=== PATIENT | female | born 1955 | race Caucasian/White ===

== ENCOUNTER 2020-07-19 09:40 | Inpatient (IN) | payer MEDICARE, OTHER ==
[2020-07-15 12:21] LABS: Basophils # (auto) 0.1 10 ^3/uL (0-0.2); Basophils % (auto) 1.4 % (0.0-2.0); Eosinophils # (auto) 0.3 10 ^3/uL (0-0.8); Eosinophils % (auto) 3.5 % (0.0-7.0); Hematocrit 41.6 % (36.0-46.0); Hemoglobin 14.1 g/dL (12.2-16.2); Lymphocytes # (auto) 3.3 10 ^3/uL (0.4-5.4); Lymphocytes % (auto) 43.6 % (10.0-50.0); Mean Corpuscular Hemoglobin 30.5 pg (28.0-32.0); Mean Corpuscular Hgb Conc. 33.8 g/dL (32.0-36.0); Mean Corpuscular Volume 90.1 fL (80.0-100.0); Monocytes # (auto) 0.5 10 ^3/uL (0-1.3); Monocytes % (auto) 6.9 % (0.0-12.0); Neutrophils # (auto) 3.4 10 ^3/uL (1.6-8.6); Neutrophils % (auto) 44.6 % (37.0-80.0); Nucleated Red Blood Cells % 0.1 %; Platelet Count (auto) 285 10^3/uL (140-450); Red Blood Cells 4.62 10^6/uL (4.0-5.20); Red Cell Distribution Width 13.6 % (11.8-14.3); White Blood Cell 7.7 10^3/uL (4.4-10.8)
[2020-07-15 12:27] LABS: Urine Bacteria NONE SEEN /hpf (None Seen); Urine Blood Negative /uL (Negative); Urine Mucus FEW (None Seen); Urine Specific Gravity 1.016 (1.001-1.035); Urine WBC <1 /hpf (0 - 5)
[2020-07-15 12:54] LABS: Albumin 3.7 g/dL (3.4-5.0); BUN/Creatinine Ratio 20.3; Calcium 8.4 mg/dL (8.5-10.1); INR 0.95 (0.9-1.15); Partial Thromboplastin Time 25.5 sec (23.0-31.2); Potassium 4.5 mmol/L (3.5-5.1)
[2020-07-15 12:55] LABS: Bilirubin, Total 0.3 mg/dL (0.2-1.0); Total Protein 7.6 g/dL (6.4-8.2)
[~2020-07-19] VITALS: Ht 154.9 cm; Wt 71.7 kg
[~2020-07-19 09:40] MED LIST: ASCO500T11 PO; ASPI-543 PO; CARV6.2551 PO; CHOL500040 PO; CYAN-17 PO; MULT50TA PO; OMEP20TA PO; SERT-377 PO; SIMV-13 PO; ZINC50TA7 PO; [UNRECOGNIZED DRUG - CODE] PO
[2020-07-19] MEDS ORDERED: ceFAZolin 1GM/50ML 100 ML IV ONE (09:50)
[2020-07-19] MEDS ORDERED: ceFAZolin 1GM VL ONE (10:23)
[2020-07-19] MEDS ORDERED: LIDOCAINE W/ EPINEPHRINE 1% 20ML VIAL ONE (10:23)
[2020-07-19] MEDS ORDERED: METHYLENE BLUE 0.5% 5MG/ML 10ml AMP IV ONE (10:24)
[2020-07-19] MEDS ORDERED: BUPIVACAINE 0.25% INJ 50ML VIAL ONE (10:24)
[2020-07-19] MEDS ORDERED: SUCCINYLCHOLINE CHLORIDE 20 MG/ML 10ML VIAL IV ONE (11:53)
[2020-07-19] MEDS ORDERED: PHENYLEPHRINE HCL 10 MG/ML VL IV ONE (11:55)
[2020-07-19] MEDS ORDERED: ONDANSETRON HCL 4 MG/2 ML VIAL IV ONE (11:55)
[2020-07-19] MEDS ORDERED: fentaNYL CITRATE 100 MCG/2 ML VL ONE (11:58)
[2020-07-19] MEDS ORDERED: MIDAZOLAM HCL 1MG/1ML-2 ML VIAL ONE (11:59)
[2020-07-19] MEDS ORDERED: PROPOFOL 10 MG/ML 20 ML IV ONE (11:59)
[2020-07-19] MEDS ORDERED: ROCURONIUM 10MG/ML 10ML VIAL IV ONE (11:59)
[2020-07-19] MEDS ORDERED: LIDOCAINE 2% (LOCAL ANESTH.) PF 5ml SDV ONE (11:59)
[2020-07-19] MEDS ORDERED: NITROGLYCERIN 0.4 MG SL TAB SL PRN (12:15)
[2020-07-19] MEDS ORDERED: MORPHINE SULF INJ 2 MG/ML SYRINGE 1ML IV PRN (12:15)
[2020-07-19] MEDS ORDERED: ACETAMINOPHEN 325 MG TAB PO PRN (12:15)
[2020-07-19] MEDS ORDERED: HYDROcodone-ACET 5/325MG TAB PO PRN (12:15)
[2020-07-19] MEDS ORDERED: HYDROmorphone HCL 2 MG/ML VL ONE (13:51)
[2020-07-19] MEDS ORDERED: HYDROmorphone HCL 2 MG/ML VL IV PRN ×3 (14:00→15:00)
[2020-07-19] MEDS ORDERED: GLYCOPYRROLATE 0.2 MG/ML 1ML VIAL ONE (14:15)
[2020-07-19] MEDS ORDERED: ceFAZolin 1GM/50ML 50 ML IV ONE (14:56)
[2020-07-19] MEDS ORDERED: ONDANSETRON HCL 4 MG/2 ML VIAL IV PRN (15:00)
[2020-07-19] MEDS ORDERED: MEPERIDINE HCL (25 MG/ML) 1ML VIAL ONE (15:19)
[2020-07-19] MEDS ORDERED: LABETALOL HCL 5 MG/ML 4ML SYRINGE IV ONE ×2 (15:27→15:30)
[2020-07-19] MEDS ORDERED: MEPERIDINE HCL (25 MG/ML) 1ML VIAL IV ONE (15:30)
[2020-07-19] MEDS: ceFAZolin 1GM 2 GM in D5W 5% 100 ML IV SCH ×2 (16:09→21:19)
[2020-07-19 17:00] VITALS: BP 156/75
[2020-07-19] MEDS: ONDANSETRON HCL 4 MG/2 ML VIAL IV PRN (21:22)
[2020-07-19 22:21] VITALS: BP 152/74
[2020-07-20 05:11] VITALS: BP 154/72
[2020-07-20] MEDS: ceFAZolin 1GM 2 GM in D5W 5% 100 ML IV SCH ×2 (05:34→14:00)
[2020-07-20] MEDS: ONDANSETRON HCL 4 MG/2 ML VIAL IV PRN (05:35)
[2020-07-20 08:30] VITALS: BP 147/83
[2020-07-20 12:30] VITALS: BP 139/72
== END 2020-07-20 15:00 | disposition home or self-care (01) | DRG 747 ==
LOC: OVERFLOW 09:40 → EDSTATUS 14:00 → CENTRAL 15:50
PROVIDERS: ADMIT Obstetrics & Gynecology; ATTEND Obstetrics & Gynecology
PROC: 0UUF4JZ Supplement Cul-de-sac with Synthetic Substitute, Percutaneous Endoscopic Approach (ICD-10-PCS; 2020-07-19)
PROC: 8E0W4CZ Robotic Assisted Procedure of Trunk Region, Percutaneous Endoscopic Approach (ICD-10-PCS; 2020-07-19)
PROC: 0USG4ZZ Reposition Vagina, Percutaneous Endoscopic Approach (ICD-10-PCS; principal; 2020-07-19 11:55)
DX: N81.5 Vaginal enterocele (principal); N81.89 Other female genital prolapse; K66.0 Peritoneal adhesions (postprocedural) (postinfection); Z20.822 Contact with and (suspected) exposure to COVID-19
CPT/HCPCS: 36415; 80053; 81001; 85025; 85610; 85730; 86850; 86900; 86901; 87086; G0378; J0330; J0690; J2001; J2250; J2405; J2704; J3490; J7060

== ENCOUNTER 2022-12-04 08:01 | Day surgery (SDC) | payer MEDICARE, OTHER ==
[~2022-12-04] VITALS: Ht 154.9 cm; Wt 66.7 kg
[2022-12-04] VITALS (8 sets, daily range): BP systolic 103–122; BP diastolic 49–58; PULSE 58–70; RESP 12–20; O2SAT 91–97
[~2022-12-04 08:01] MED LIST changes: -ASCO500T11 PO; -CARV6.2551 PO; +IBUP-1456 PO; -MULT50TA PO; -SIMV-13 PO; +SIMV40TA18 PO; -ZINC50TA7 PO; -[UNRECOGNIZED DRUG - CODE] PO
[2022-12-04] MEDS ORDERED: IODIXANOL 320MG/ML 100ML BTL IV ONE (10:01)
[2022-12-04] MEDS ORDERED: LIDOCAINE 2%HCL (LOCAL ANESTH.) INJ 20ML MDV ONE (10:01)
[2022-12-04] MEDS ORDERED: fentaNYL CITRATE 100 MCG/2 ML VL ONE (10:05)
[2022-12-04] MEDS ORDERED: VERAPAMIL 2.5MG/ML INJ 2ML VIAL IV ONE (10:05)
[2022-12-04] MEDS ORDERED: HEPARIN SODIUM (PORCINE) 5000 UNITS/ML 1ML VIAL ONE (10:05)
[2022-12-04] MEDS ORDERED: MIDAZOLAM HCL 2MG/2ML 2ml VIAL (1mg/ml) ONE (10:05)
[2022-12-04] MEDS ORDERED: ANGIOMAX 250 MG VIAL IV ONE (10:05)
[2022-12-04] MEDS ORDERED: SODIUM CHL 0.9% 0 ML ONE (10:05)
== END 2022-12-04 12:35 | disposition home or self-care (01) ==
LOC: CATH 08:01
PROVIDERS: ATTEND Internal Medicine
DX: R07.9 Chest pain, unspecified (principal); R94.39 Abnormal result of other cardiovascular function study; I25.118 Atherosclerotic heart disease of native coronary artery with other forms of angina pectoris; R07.89 Other chest pain; I10 Essential (primary) hypertension; Z79.899 Other long term (current) drug therapy; Z79.82 Long term (current) use of aspirin; Z98.890 Other specified postprocedural states
CPT/HCPCS: 93458; C1769; C1894; J1644; J2250; J3010; Q9967; 99152